=== PATIENT | female | born 1970 | race Caucasian/White ===

== ENCOUNTER 2020-03-03 10:05 | Outpatient (CLI) | payer OTHER, SELFPAY ==
--- NOTE | 2020-03-03 10:29 | ECG_ITS ---
Measurements Intervals [place] Rate: 72 P: 57 NH: 147 QRS: 1 QRSD: 78 T: 63 QT: 374 QTc: 410 Interpretive Statements SINUS RHYTHM LOW QRS VOLTAGE IN PRECORDIAL LEADS BORDERLINE R WAVE PROGRESSION, ANTERIOR LEADS BORDERLINE ECG Electronically Signed On 03-03-2020 12:59:57 CDT by Anil Nelson D.O.
== END 2020-03-03 10:06 | disposition home or self-care (01) ==
PROVIDERS: Visit Provider Urology
DX: N39.3 Stress incontinence (female) (male) (principal); E78.00 Pure hypercholesterolemia, unspecified
CPT/HCPCS: 87086; 87088; 93005

== ENCOUNTER 2020-03-06 00:15 | Outpatient (CLI) | payer OTHER, SELFPAY ==
[2020-03-06 18:41] LABS: SARS-CoV-2 RNA PCR Negative
== END 2020-03-06 00:16 | disposition home or self-care (01) ==
LOC: ANHCOVIDDT 00:15
PROVIDERS: Visit Provider Urology
DX: Z01.818 Encounter for other preprocedural examination (principal); Z11.59 Encounter for screening for other viral diseases
CPT/HCPCS: 87635; C9803; U0003

== ENCOUNTER 2020-03-09 00:33 | Day surgery (SDC) | payer OTHER, SELFPAY ==
[2020-01-02 11:51] VITALS: BMI 34.2
[2020-03-02 15:31] VITALS: BMI 34.2
[2020-03-09] VITALS (8 sets, daily range): BP systolic 114–133; BP diastolic 65–82; PULSE 68–95; RESP 12–20; TEMP 36.3–36.5; O2SAT 98–100
--- NOTE | 2020-03-09 07:30 | WPDHPUPDATE1 ---
History and Physical Update Update Date/Time: 03/09/20 07:30 History and Physical has been reviewed, including an updated exam of the patient. There are NO changes in the patient's condition. Risks, benefits, and alternatives have been discussed and questions answered. Patient agrees to proceed with procedure.
[2020-03-09] MEDS: LACTATED RINGERS 1,000 ML 30 ML IV CONT (08:55)
--- NOTE | 2020-03-09 09:08 | WPDANESEPPF ---
Anes - Initial Pre Proc Eval Procedure: Operation Date: 03/09/20 10:00 Proposed Procedures p Urethral Sling - Jimmy Canela MD Date/Time: 03/09/20 09:08 Surgeon: Jimmy Canela MD Pre Op Diagnosis: Stress Incontinence Patient Data Age: 49 Gender: F Height: 1.52 m Weight: 80.4 kg Last Vital Signs Temp 36.5 C 03/09/20 08:28 Pulse 88 03/09/20 08:28 Resp 18 03/09/20 08:28 BP 124/82 03/09/20 08:28 Pulse Ox 100 03/09/20 08:28 Allergies Allergy/AdvReac Type Severity Reaction Status Date / Time adhesive tape Allergy Itching W/ Verified 03/09/20 08:35 PROLONGED USE Home Medications Medication Instructions Recorded Confirmed Type ascorbic acid (vitamin C) [Vitamin 500 mg PO DAILY 01/02/20 03/02/20 History C] atorvastatin 10 mg PO DAILY 01/02/20 03/02/20 History hyoscyamine sulfate 0.125 mg PO BID PRN 01/02/20 03/02/20 History omeprazole 20 mg PO DAILY 01/02/20 03/02/20 History vitamin E 400 unit PO DAILY 01/02/20 03/02/20 History multivitamin 1 tablet PO DAILY 03/02/20 03/02/20 History ECG: Date of Service: 03/03/20 Procedure(s): CA 12 lead EKG Accession Number(s): [id number] cc: ~ Measurements Intervals [place] Rate: 72 P: 57 [place]: 147 QRS: 1 QRSD: 78 T: 63 QT: 374 QTc: 410 Interpretive Statements SINUS RHYTHM LOW QRS VOLTAGE IN PRECORDIAL LEADS BORDERLINE R WAVE PROGRESSION, ANTERIOR LEADS BORDERLINE ECG Electronically Signed On 03-03-2020 12:59:57 CDT by Anil Nelson D.O. Dictated By: Anil Nelson DO 03/03/20 1036 Patient hx anesthesia problems: other (STATES WAS INSTRUCTED SHE IS A DIFFICULT INTUBATION) Family hx anesthesia problems: none PMFSH Past Medical History Medical History (Updated 03/09/20 @ 09:11 by Oleksandr Kohli MD) Arthritis Back pain 2 LUMBAR BULGING DISCS Fatty liver Hypercholesterolemia IBS (irritable bowel syndrome) Obesity Stress incontinence Anes - Eval Final PreProcedure Day of Procedure 03/09/20 09:08 Patient weight: obese Heart: regular rate and rhythm Lungs: clear to auscultation and normal air movement Airway: Mallampati scale class II Neurological: alert and oriented Last oral intake: >/= 8 hours ASA classification: III Emergent: no Anesthetic plan: proceed Anesthesia type and monitoring: general LMA Informed Consent: The patient's anesthetic plan and its attendant risks and benefits were discussed with the patient/family/POA. Questions were solicited and answers provided to the satisfaction of the patient/family/POA.
[2020-03-09] MEDS: ceFAZolin 2 GM/D5W 50 ML 2 GM/50 ML BAG IVPB (10:13)
[2020-03-09] MEDS: BUPIVACAINE/EPINEPHRINE 0.25% 50 ML VIAL 10 ML INFILTRATE (10:30)
--- NOTE | 2020-03-09 10:50 | PM.PROC ---
Procedure Note - Detailed Date of procedure: 03/09/20 Pre-op diagnosis: Stress Incontinence Stress urinary incontinence Post-op diagnosis: same Procedure performed: Transobturator Mid-urethral sling Cystoscopy Description of procedure: This is a patient with confirmed stress urinary incontinence. She desires correction. She understands the risks of bleeding, infection, damage to the urinary tract, lack of cure of stress incontinence, recurrence of stress incontinence, postoperative voiding dysfunction including incontinence and retention, need for ancillary procedures to loosen remove the sling, postoperative voiding dysfunction including retention and overactive bladder, hip and leg pain, dyspareunia, mesh related complications including exposure and extrusion. She agrees to proceed. She understands it will not help overactive bladder symptoms if present. She was correctly identified and informed consent obtained. She is brought to the operating room. She was given appropriate anesthesia. She was placed in the dorsal lithotomy position. All pressure points were padded. She was given appropriate perioperative antibiotics and a time-out performed. A Broussard catheter is placed. I marked out the thigh incisions anesthetize the skin and made those incisions. I anesthetized the anterior vaginal wall over the mid urethra. I made a 1 cm incision. I dissected out laterally taking great care not to injure the urethra or the vaginal wall. Passed the helical trocars 1st on the left and then on the right from the thigh incision towards the vaginal incision. Sling was connected to the trocars and brought out through the thigh incision. I tensioned the sling appropriately. I cut and removed the plastic sheaths. I closed the incision with 2 0 Vicryl. I then performed cystoscopy. There was no surgical artifact or abnormalities inside the bladder. The urethra was normal without surgical artifact. I cut the excess sling material. I closed the incisions with glue. She was awakened and transferred to the PACU in stable condition. Implants: Mid urethral sling Surgeon: Jimmy Canela MD Drains: No Packing: No Pathology: none sent Complications: No immediate complications Condition: stable Disposition: PACU
== END 2020-03-09 12:35 | disposition home or self-care (01) ==
PROVIDERS: Visit Provider Urology
PROC: (CPT 57288; principal; 2020-03-09 10:00)
DX: N39.3 Stress incontinence (female) (male) (principal); K76.0 Fatty (change of) liver, not elsewhere classified; E78.00 Pure hypercholesterolemia, unspecified; K58.9 Irritable bowel syndrome, unspecified; E66.9 Obesity, unspecified; Z68.34 Body mass index [BMI] 34.0-34.9, adult
CPT/HCPCS: 57288; A9270; C1771; J0690; J2250; J2405; J2704; J3010; J7030; J7120

== ENCOUNTER 2023-01-06 08:19 | Emergency (ER) | payer OTHER, SELFPAY ==
--- NOTE | 2023-01-06 08:26 | ED.URI ---
HPI - URI/Sore Throat General Chief Complaint: Upper Respiratory Infection Stated Complaint: congestion, lt eye irritation,sore throat,ear pain Source: patient and RN notes reviewed History of Present Illness HPI Narrative: 52-year-old female presents to urgent care with complaints of congestion, sinus pressure, bilateral ear pain and pressure, sore throat, and bilateral eye matting this morning. Patient states she has had the other symptoms for approximately 3 weeks. Patient does report a recent exposure to strep throat. Denies any fevers, vomiting, diarrhea chest pain, shortness of breath. Patient has been taking [id number] cold and flu medication with minimal relief. Some parts of this dictation were generated by voice recognition software and may contain typographical and/or grammatical inaccuracies. Related Data Home Medications Medication Instructions Recorded Confirmed ascorbic acid (vitamin C) 500 mg 500 mg PO DAILY 01/02/20 12/24/22 tablet (Vitamin C) atorvastatin 10 mg tablet 10 mg PO DAILY 01/02/20 12/24/22 hyoscyamine sulfate 0.125 mg tablet 0.125 mg PO BID PRN Cramps 01/02/20 12/24/22 omeprazole 20 mg capsule,delayed 20 mg PO DAILY 01/02/20 12/24/22 release vitamin E 268 mg (400 unit) capsule 400 unit PO DAILY 01/02/20 12/24/22 multivitamin 1 tablet PO DAILY 03/02/20 12/24/22 aspirin 81 mg tablet,delayed 81 mg PO DAILY 09/09/22 12/24/22 release (Adult Aspirin Regimen) cholecalciferol (vitamin D3) 325 325 mcg PO WEEKLY 09/09/22 12/24/22 mcg (13,000 unit) capsule Allergies Allergy/AdvReac Type Severity Reaction Status Date / Time adhesive tape Allergy Itching W/ Verified 12/24/22 15:42 PROLONGED USE amoxicillin AdvReac Gastrointestinal Verified 01/06/23 08:40 Upset Review of Systems Review of Systems: Pertinent positives and pertinent negatives per HPI. [facility] Past Medical History Medical History (Updated 01/06/23 @ 09:19 by Rachel Rodas, FANNY) Arthritis Back pain 2 LUMBAR BULGING DISCS Fatty liver Fatty tumor (04/18/22) excision of fatty tumors x 4 HSV-2 (herpes simplex virus 2) infection Hypercholesterolemia IBS (irritable bowel syndrome) Obesity Other abnormal clinical finding 11/2017 lipoma removed 2018 lipoma removed from lower back Screening mammogram, encounter for Stress incontinence Surgical History Surgical History Delivery by section 1996 History of gynecological procedure (~2008) novasure ablation - menometrorrhagia, dysmenorrhea History of tonsillectomy Hx of cholecystectomy Excision Fatty mass 2017, Cholecystectomy 2017 Status post creation of urethral sling by suprapubic approach (03/09/20) Family History Family History Father Heart disease Vascular disease Mother Heart disease Social History Social History Smoking status: Never smoker Alcohol intake: current Alcohol use details: 1-3 times a year Substance use: never Substance use type: does not use Living arrangements: other Additional living arrangements comments: Occupation/Education: occupation 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 There is no relevant family history pertinent to the patient complaint. Exam Narrative: GENERAL: This is a well-nourished, well-developed patient, in no apparent distress. HEAD: normocephalic, atraumatic. EYES: PERRL. Sclera clear/white. Vision is grossly intact. Left upper eyelid noted to be mildly erythemic. Bilateral lower conjunctivae
[2023-01-06 08:35] VITALS: BP 140/92; PULSE 94; RESP 16; TEMP 36.5; O2SAT 100
== END 2023-01-06 09:23 | disposition home or self-care (01) ==
PROVIDERS: Emergency Provider Nurse Practitioner Family
DX: J01.90 Acute sinusitis, unspecified (principal); H10.33 Unspecified acute conjunctivitis, bilateral; L03.213 Periorbital cellulitis; M19.90 Unspecified osteoarthritis, unspecified site; K76.0 Fatty (change of) liver, not elsewhere classified; E78.00 Pure hypercholesterolemia, unspecified; E66.9 Obesity, unspecified; Z68.31 Body mass index [BMI] 31.0-31.9, adult
CPT/HCPCS: 87081; 87880; 99213; G0463

== ENCOUNTER 2024-03-19 18:28 | Emergency (ER) | payer SELFPAY ==
--- NOTE | 2024-03-19 18:34 | ED.GENADULT ---
HPI - General Adult General Chief complaint: Skin/Abscess/Foreign Body Stated complaint: R TOE PAIN/INSECT BITE Time Seen by Provider: 03/19/24 18:34 Source: patient Mode of arrival: ambulatory Limitations: no limitations History of Present Illness HPI narrative: 53-year-old female patient presents to [facility] with complaints of an insect bite to the right foot. Patient states that it has been there for about a week now and has been using hydrogen peroxide and antibiotic ointment to the area. Patient states that she had a little bit of discharge from the area yesterday and it stuck to her socks so has not wanting to been wearing tennis shoes. Patient denies fevers, body aches or chills. Patient states it does itch very badly . Patient denies taking any antihistamines or using any topical hydrocortisone cream. Related Data Home Medications Medication Instructions Recorded Confirmed ascorbic acid (vitamin C) 500 mg 500 mg PO DAILY 01/02/20 03/19/24 tablet (Vitamin C) atorvastatin 10 mg tablet 10 mg PO DAILY 01/02/20 03/19/24 hyoscyamine sulfate 0.125 mg tablet 0.125 mg PO BID PRN Cramps 01/02/20 03/19/24 omeprazole 20 mg capsule,delayed 20 mg PO DAILY 01/02/20 03/19/24 release multivitamin 1 tablet PO DAILY 03/02/20 03/19/24 aspirin 81 mg tablet,delayed 81 mg PO DAILY 09/09/22 03/19/24 release (Adult Aspirin Regimen) cholecalciferol (vitamin D3) 325 325 mcg PO WEEKLY 09/09/22 03/19/24 mcg (13,000 unit) capsule Allergies Allergy/AdvReac Type Severity Reaction Status Date / Time adhesive tape Allergy Itching W/ Verified 03/19/24 18:37 PROLONGED USE amoxicillin AdvReac Gastrointestinal Verified 03/19/24 18:37 Upset Review of Systems Review of Systems: CONSTITUTIONAL: Denies fever, chills, or sweats. EYES: Denies visual changes, redness, or discharge. ENT: Denies rhinorrhea, congestion, sore throat, or otalgia. CARDIOVASCULAR: Denies chest pain, palpitations, or edema. RESPIRATORY: Denies cough or dyspnea. GASTROINTESTINAL: Denies abdominal pain, nausea, vomiting, or diarrhea. GENITOURINARY: Denies dysuria or hematuria. SKIN: Denies rash or itching. Positive insect bites between the 1st and 2nd toe on the right foot MUSCULOSKELETAL: Denies back pain, joint pain, or myalgia. NEUROLOGIC: Denies headache, numbness, or weakness. PSYCHIATRIC: Denies anxiety or depression. [facility] Past Medical History Medical History Arthritis Back pain 2 LUMBAR BULGING DISCS Fatty liver Fatty tumor (04/18/22) excision of fatty tumors x 4 HSV-2 (herpes simplex virus 2) infection Hypercholesterolemia IBS (irritable bowel syndrome) Obesity Other abnormal clinical finding 11/2017 6 lipoma removed / 2018 lipoma removed from lower back Screening mammogram, encounter for Stress incontinence Surgical History Surgical History Delivery by section 1996 History of gynecological procedure (~2008) novasure ablation - menometrorrhagia, dysmenorrhea History of tonsillectomy Hx of cholecystectomy Excision Fatty mass 2017, Cholecystectomy 2017 Status post creation of urethral sling by suprapubic approach (03/09/20) Family History Family History Father Heart disease Vascular disease Mother Heart disease Social History Social History Smoking status: Never smoker Second hand tobacco smoke exposure: Yes Alcohol intake: current Alcohol use details: 1-3 times a year Substance use: never Substance use type: does not use Do You Feel Safe in your Home?: Yes Lack of Transportation: No Lack of Food: Never True Current Housing: I Have Housing Concerned About Future Housing: No Difficulty Paying Gas/Electric Bills: No Difficulty Paying for Meds: No
[2024-03-19 18:41] VITALS: BP 147/90; PULSE 94; RESP 16; TEMP 36.9; O2SAT 100
== END 2024-03-19 18:55 | disposition home or self-care (01) ==
PROVIDERS: Emergency Provider Nurse Practitioner Family; PCP Family Medicine
DX: S90.861A Insect bite (nonvenomous), right foot, initial encounter (principal); W57.XXXA Bitten or stung by nonvenomous insect and other nonvenomous arthropods, initial encounter; M19.90 Unspecified osteoarthritis, unspecified site; K76.0 Fatty (change of) liver, not elsewhere classified; E78.00 Pure hypercholesterolemia, unspecified; E66.9 Obesity, unspecified; Z68.36 Body mass index [BMI] 36.0-36.9, adult
CPT/HCPCS: 99211; G0463